=== PATIENT | male | born 1950 | race Caucasian/White ===

== ENCOUNTER 2016-12-07 09:56 | Emergency (ER) | payer OTHER ==
[~2016-12-07] VITALS: Ht 175.3 cm; Wt 131.5 kg
[~2016-12-07 09:56] MED LIST: CRESTOR20 MG PO; IBUPROFEN 600600 M1 PO; LISINOPRIL10 MG PO; NORCO 5-325 TA1 EACH PO; VALIUM2 MG PO
[2016-12-07 10:00] VITALS: BP 159/82
[2016-12-07] MEDS ORDERED: INVOKANA300 MG PO (10:04)
[2016-12-07] MEDS ORDERED: MAXZIDE-25 MG1 EACH PO (10:04)
[2016-12-07] MEDS ORDERED: METFORMIN HCL500 MG PO (10:04)
[2016-12-07] MEDS ORDERED: MOBIC15 MG PO (10:05)
[2016-12-07] MEDS ORDERED: K-DUR 20 MEQ T20 MEQ PO (10:05)
[2016-12-07] MEDS ORDERED: ROSUVASTATIN CA20 MG PO (10:05)
[2016-12-07] MEDS ORDERED: NORCO 5-325 TA1 EACH PO (10:23)
[2016-12-07] MEDS ORDERED: VALIUM5 MG PO (10:23)
[2016-12-07] MEDS ORDERED: PREDNISONE 20 M20 MG PO (10:23)
== END 2016-12-07 10:50 | disposition home or self-care (01) ==
LOC: ER 09:56
DX: S39.012A Strain of muscle, fascia and tendon of lower back, initial encounter (principal); M54.42 Lumbago with sciatica, left side; I10 Essential (primary) hypertension; Z88.0 Allergy status to penicillin; X50.0XXA Overexertion from strenuous movement or load, initial encounter; Y93.89 Activity, other specified; Y92.89 Other specified places as the place of occurrence of the external cause; Y99.8 Other external cause status

== ENCOUNTER 2018-02-18 04:18 | Emergency (ER) | payer OTHER ==
[~2018-02-18] VITALS: Ht 175.3 cm; Wt 127.0 kg
--- NOTE | ~2018-02-18 | EKG ---
[address] [address] ELECTROCARDIOGRAM REPORT Name: JOLENE FAUSTIN Room #: DEP [facility]#: [id number] Admission: 02/18/18 Attend Phys: Discharge: 02/18/18 Date of : 50 Report #: [id number] THIS REPORT FOR: //name// [facility] ED Test Date: 2018-02-18 Test Time: 04:32:47 Pat Name: JOLENE FAUSTIN Department: Room: Gender: M Heel Seat Laster: [id number] : 1950 Requested By: Alycia Mercado Order Number: [id number] MD: Collin Amador Measurements Intervals [place] Rate: 70 P: 14 OH: 245 QRS: 23 QRSD: 90 T: 35 QT: 397 QTc: 429 Interpretive Statements Sinus rhythm Prolonged OH interval Compared to ECG 12/11/2007 09:45:32 No significant changes Electronically Signed On 02-18-2018 8:17:51 CDT by Collin Amador [email or web address] <ELECTRONICALLY SIGNED> By: Collin Amador MD 02/18/18 0817 043 043 Collin Amador MD /GIOAVNNI
[~2018-02-18 04:18] MED LIST changes: +INVOKANA300 MG PO; +K-DUR 20 MEQ T20 MEQ PO; +MAXZIDE-25 MG1 EACH PO; +METFORMIN HCL500 MG PO; +MOBIC15 MG PO; +PREDNISONE 20 M20 MG PO; +ROSUVASTATIN CA20 MG PO; +VALIUM5 MG PO
[2018-02-18] MEDS ORDERED: ASPIR 8181 MG PO (04:32)
[2018-02-18] MEDS ORDERED: LISINOPRIL10 MG PO (04:34)
[2018-02-18] MEDS ORDERED: CRESTOR20 MG PO ×2 (04:34→04:35)
[2018-02-18] MEDS ORDERED: KLOR-CON 1010 MEQ PO (04:37)
[2018-02-18 04:59] LABS: ABSOLUTE NEUTROPHILS 7.4 thou/uL (1.4-8.2); BASOPHILS 0.8 % (0.0-2.0); EOSINOPHILS 4.9 % (0.0-3.0); HEMATOCRIT 49.2 % (42.0-52.0); LYMPHOCYTES 20.4 % (24.0-44.0); MCH 27.7 pg (26.0-34.0); MCHC 34.6 g/dL (28.0-37.0); MCV 80.1 fL (80.0-100.0); MONOCYTES 6.2 % (1.0-8.0); PLATELET COUNT 232 thou/uL (150-400); POLYS 67.7 % (36.0-66.0); RBC 6.14 mil/uL (4.50-6.00); WBC 10.9 thou/uL (4.0-11.0)
[2018-02-18 05:02] LABS: ANION GAP 12 mmol/L (7-16); BUN 26 mg/dL (7-18); CALCIUM 9.5 mg/dL (8.5-10.1); CHLORIDE 100 mmol/L (98-107); CO2 27 mmol/L (21-32); CREATININE 1.1 mg/dL (0.7-1.3); GLUCOSE 166 mg/dL (74-106); POTASSIUM 3.5 mmol/L (3.5-5.1); SODIUM 139 mmol/L (136-145)
[2018-02-18 05:11] LABS: TROPONIN-I < 0.04 ng/mL (<0.06)
[2018-02-18] MEDS ORDERED: NORCO 5-325 TA1 EACH PO (06:24)
[2018-02-18 06:35] VITALS: BP 115/56
== END 2018-02-18 06:35 | disposition home or self-care (01) ==
LOC: ER 04:18
PROVIDERS: Emergency Medicine
DX: S16.1XXA Strain of muscle, fascia and tendon at neck level, initial encounter (principal); R07.9 Chest pain, unspecified; I10 Essential (primary) hypertension; M19.90 Unspecified osteoarthritis, unspecified site; Z88.0 Allergy status to penicillin; X58.XXXA Exposure to other specified factors, initial encounter; Y93.89 Activity, other specified; Y92.89 Other specified places as the place of occurrence of the external cause; Y99.8 Other external cause status

== ENCOUNTER → 2018-08-15 | Outpatient (CLI) | payer OTHER ==
[~2018-08-15] VITALS: Ht 175.3 cm; Wt 124.7 kg
[~2018-08-15] MED LIST changes: +ASPIR 8181 MG PO; +KLOR-CON 1010 MEQ PO
--- NOTE | ~2018-08-15 | PATH ---
[facility] [address] [address] PATHOLOGY RPT PROCEDURE Name: JOLENE FAUSTIN Room #: REG CLI [facility].#: [id number] Admission: 08/15/18 Date of : 50 Discharge: Report #: [id number] Path Case #: [id number] [facility] Accession Number: [id number] . 01 Material submitted: . BX OF RECTAL POLYP . 01 Clinical history: . Pre-OP DX: Screening Post-OP DX: Rectal polyp, diverticulosis . 02 Diagnosis: Polyp, rectal polyp, endoscopic biopsy: - Hyperplastic polyp. - Negative for dysplasia. (IUV:tish; 08/16/2018) QMS/08/16/2018 . 02 Electronically signed: . Flakita Velazquez MD, Pathologist NPI- [id number] . 01 Gross description: . Received in formalin labeled "Abigail, Jolene, BX of rectal polyp," is a single segment of tamez soft tissue measuring 0.3 cm in maximum dimension. The specimen is entirely submitted in cassette A1. (TSD; 08/15/2018) /TOB . 02 Pathologist provided ICD-10: K62.1 . 02 CPT . 658158 Specimen Comment: A courtesy copy of this report has been sent to Specimen Comment: [phone], . Specimen Comment: Report sent to and Performed at: [address], [place] [id number] MD Chauncey Velazquez MD Phone: [phone] Performed at: [address] [id number] MD Flakita Velazquez MD Phone: [phone]
--- NOTE | ~2018-08-15 | P ---
[facility] [place] [address] [place] [address] PROCEDURE REPORT Name: JOLENE FAUSTIN Room #: REG [facility].#: [id number] Admission: 08/15/18 Attend Phys: Miguel A Hooper MD Discharge: Date of : 50 Report #: [id number] THIS REPORT FOR: //name// CC: Miguel A Lynn DATE OF SERVICE: 08/15/2018 BRIEF HISTORY: The patient is a 67-year-old male for average risk screening colonoscopy. PREOPERATIVE DIAGNOSIS: Average risk screening colonoscopy. POSTOPERATIVE DIAGNOSES: 1. Diminutive rectal polyp. 2. Diverticulosis coli, mild. MEDICATIONS: Deep sedation with propofol per anesthesia. SPECIMEN: Rectal polyp. ESTIMATED BLOOD LOSS: 3 mL. PROCEDURE: Colonoscopy to cecum and terminal ileum with biopsy. FINDINGS: Prior to propofol sedation, procedure of colonoscopy discussed with the patient as well as potential risks and its complications. He indicates he understands and desires to proceed. DESCRIPTION OF PROCEDURE: With the patient in left lateral decubitus position, digital examination was completed, which revealed no abnormalities. Subsequently, the Olympus video colonoscope was introduced in the rectum, advanced under direct vision to the cecum. Done with minimal difficulty. The cecum was identified by the ileocecal valve and the appendiceal orifice. I was able to briefly see the very distal aspect of the terminal ileum, which was normal. At that point, the scope was slowly withdrawn and careful circumferential views were obtained including retroflexing the scope in the proximal colon. Upon slow withdrawal of the scope, the prep was good. Mucosa was within normal limits, normal vascular pattern, normal light reflex. As we withdrew the scope, no mucosal abnormalities were seen. There were a few scattered diverticula in the proximal colon without endoscopic evidence of diverticulitis. As we withdrew the scope further, no additional abnormalities were noted until the sigmoid colon was reached when a few scattered diverticula were seen. Again, no neoplastic lesions were seen. Scope was withdrawn in the rectum. In the distal rectum, a diminutive polyp was seen and removed with biopsy forceps. Scope was further withdrawn and upon retroflexion, no [facility] [address] [place] [address] PROCEDURE REPORT Name: [facility] FAUSTIN [id number] Admission: 08/15/18 Attend Phys: Miguel A Hooper MD Discharge: Date of : 50 Report #: [id number] additional abnormalities were seen. Scope was withdrawn. The patient tolerated the procedure well. CONDITION OF THE PATIENT UPON DISCHARGE: Following procedure, the patient drowsy, aroused and conversant and will be discharged home when fully ambulatory. INSTRUCTIONS TO THE PATIENT AND FAMILY AT THE TIME OF DISCHARGE: We will follow up on the path report. If this polyp is an adenoma, he should return in 5 years; if it is not an adenoma, then 10 years would be indicated. I suggest a high-fiber diet. Return to care of Dr. Sandip Lynn and return to see me as needed. Last colonoscopy was 11 years ago. Withdrawal time from cecum was 14 minutes 40 seconds. <ELECTRONICALLY SIGNED> By: Miguel A Hooper MD 08/19/18 1044 [id number] 1303 Miguel A Hooper MD /nt
== END | disposition home or self-care (01) ==
LOC: GI 08:03
DX: Z12.11 Encounter for screening for malignant neoplasm of colon (principal); K62.1 Rectal polyp; K57.30 Diverticulosis of large intestine without perforation or abscess without bleeding; I10 Essential (primary) hypertension; E78.5 Hyperlipidemia, unspecified; M19.90 Unspecified osteoarthritis, unspecified site; Z87.442 Personal history of urinary calculi; Z96.652 Presence of left artificial knee joint; Z98.890 Other specified postprocedural states; Z88.0 Allergy status to penicillin; Z79.82 Long term (current) use of aspirin; Z79.899 Other long term (current) drug therapy
CPT/HCPCS: 62110; 62900